=== PATIENT | male | born 1965 | race Caucasian/White ===

== ENCOUNTER → 2023-11-25 12:25 | Outpatient (REF) | payer OTHER, SELFPAY | LOC: RAD 12:25 | PROVIDERS: ATTENDING PHYSICIAN Family Medicine; FAMILY PHYSICIAN Family Medicine | DX: R10.30 Lower abdominal pain, unspecified (principal); R19.5 Other fecal abnormalities | CPT/HCPCS: 74018 ==

== ENCOUNTER → 2024-02-12 09:47 | Outpatient (REF) | payer OTHER, SELFPAY | LOC: RAD 09:47 | PROVIDERS: ATTENDING PHYSICIAN Internal Medicine Rheumatology; FAMILY PHYSICIAN Family Medicine | DX: M06.00 Rheumatoid arthritis without rheumatoid factor, unspecified site (principal); M25.512 Pain in left shoulder; M54.2 Cervicalgia | CPT/HCPCS: 72052; 73030 ==

== ENCOUNTER → 2024-03-09 07:19 | Outpatient (REF) | payer OTHER, SELFPAY | LOC: MRI 3T 07:19 | PROVIDERS: ATTENDING PHYSICIAN Family Medicine; REFERRING PHYSICIAN Internal Medicine Rheumatology | DX: M54.50 Low back pain, unspecified (principal); M51.360 Other intervertebral disc degeneration, lumbar region with discogenic back pain only | CPT/HCPCS: 72148 ==

== ENCOUNTER → 2024-06-07 07:35 | Outpatient (REF) | payer OTHER, SELFPAY | LOC: HWRAD 07:35 | PROVIDERS: ATTENDING PHYSICIAN Physician Assistant Medical; FAMILY PHYSICIAN Family Medicine | DX: R10.11 Right upper quadrant pain (principal) | CPT/HCPCS: 76700 ==

== ENCOUNTER → 2024-12-06 06:21 | Outpatient (REF) | payer OTHER, SELFPAY | LOC: HWRAD 06:21 | PROVIDERS: ATTENDING PHYSICIAN Surgery; FAMILY PHYSICIAN Family Medicine | DX: K80.20 Calculus of gallbladder without cholecystitis without obstruction (principal) | CPT/HCPCS: 76700 ==